=== PATIENT | female | born 1990 | race African-American/Black ===

== ENCOUNTER 2020-02-24 17:04 | Emergency (ER) | payer OTHER ==
[2020-02-24 17:07] VITALS: BP 122/83
== END 2020-02-24 18:33 | disposition left against medical advice (07) ==
LOC: ER 17:04
DX: Z53.21 Procedure and treatment not carried out due to patient leaving prior to being seen by health care provider (principal)

== ENCOUNTER 2020-03-01 09:54 | Emergency (ER) | payer SELFPAY ==
--- NOTE | 2020-03-01 10:06 | ER Document Report ---
ED Medical Screen (RME) - General Chief Complaint: Numbness Stated Complaint: ARM NUMBNESS/HEADACHE Time Seen by Provider: 03/01/20 09:59 Mode of Arrival: Ambulatory Information source: Patient Notes: 29-year-old female presented to ED for complaint of numbness to the right side of her mouth numbness to her left arm left leg and back pain that is excruciating. She does have multiple sclerosis. She states the numbness started on February 08 to the right side of her mouth. She states she went to her multiple sclerosis doctor and she got a shot and all of the symptoms got much better. Now she is moved to [place] 2 weeks ago from [place]. She now states she has slurring speech, numbness to her mouth, left arm and leg pain pain and numbness, pain to the back and a headache. She states she did drive herself to the hospital. She is alert oriented speaking in full sentences she is able to walk. I have greeted and performed a rapid initial assessment of this patient. A comprehensive ED assessment and evaluation of the patient, analysis of test results and completion of medical decision making process will be conducted by an additional ED providers. TRAVEL OUTSIDE OF THE [place] IN LAST 30 DAYS: No - Related Data Allergies/Adverse Reactions: fentanyl [Fentanyl] Allergy (Severe, Verified 03/01/20 09:57) ITCHING Past Medical History - Social History Chew tobacco use (# tins/day): No Frequency of alcohol use: Rare Drug Abuse: None - Past Medical History Cardiac Medical History: Denies: Hx Heart Attack, Hx Hypertension Pulmonary Medical History: Denies: Hx Asthma Neurological Medical History: Denies: Hx Cerebrovascular Accident, Hx Seizures GI Medical History: Reports: Hx Gastroesophageal Reflux Disease. Denies: Hx Hepatitis, Hx Hiatal Hernia, Hx Ulcer Musculoskeltal Medical History: Reports Hx Multiple Sclerosis Infectious Medical History: Denies: Hx Hepatitis Past Surgical History: Reports: Hx Appendectomy, Hx Section, Hx Tubal Ligation. Denies: Hx Hysterectomy, Hx Mastectomy, Hx Open Heart Surgery, Hx Pacemaker - Immunizations Immunizations up to date: Yes Hx Diphtheria, Pertussis, Tetanus Vaccination: Yes Physical Exam - Vital signs Vitals: Temp 98.5 F 03/01/20 09:57 Course - Vital Signs Vital signs: Temp Pulse Resp BP Pulse Ox 98.5 F 03/01/20 09:57
[2020-03-01 10:07] VITALS: BP 111/56
[2020-03-01 10:40] LABS: ABSOLUTE EOSINOPHILS # (AUTO) 0.1 10^3/uL (0.0-0.6); ABSOLUTE MONOCYTES (AUTO) 0.5 10^3/uL (0.1-1.4); ABSOLUTE NEUT (AUTO) 2.3 10^3/uL (1.7-8.2); BASOPHILS % (AUTO) 0.6 % (0-2); EOSINOPHILS % (AUTO) 2.9 % (0-6); HEMATOCRIT 35.9 % (36.0-47.0); HEMOGLOBIN 11.7 g/dL (12.0-15.5); LYMPHOCYTES % (AUTO) 41.1 % (13-45); MEAN CORPUSCULAR HEMOGLOBIN 24.3 pg (27.0-33.4); MEAN CORPUSCULAR HGB CONC 32.7 g/dL (32.0-36.0); MEAN CORPUSCULAR VOLUME 74 fl (80-97); MONOCYTES % (AUTO) 9.6 % (3-13); PLATELET COUNT 389 10^3/uL (150-450); RED BLOOD COUNT 4.82 10^6/uL (3.72-5.28); RED CELL DISTRIBUTION WIDTH 17.7 % (11.5-14.0); SEGMENTED NEUTROPHILS % (AUTO) 45.8 % (42-78); TOTAL CELLS COUNTED % (AUTO) 100 %
[2020-03-01] MEDS ORDERED: ACETAMINOPHEN 325 MG TABLET PO ONE (10:43)
[2020-03-01 10:47] LABS: ALBUMIN 4.7 g/dL (3.5-5.0); ALKALINE PHOSPHATASE 76 U/L (38-126); ANION GAP 8 (5-19); ASPARTATE AMINO TRANSFERASE 24 U/L (14-36); BILIRUBIN,TOTAL 0.6 mg/dL (0.2-1.3); BLOOD UREA NITROGEN 12 mg/dL (7-20); CARBON DIOXIDE 26 mmol/L (22-30); CHLORIDE 103 mmol/L (98-107); GLUCOSE 94 mg/dL (75-110); POTASSIUM 4.2 mmol/L (3.6-5.0); TOTAL PROTEIN 8.5 g/dL (6.3-8.2)
--- NOTE | 2020-03-01 10:59 | ER Document Report ---
HPI - HPI Patient complains to provider of: MS flare Time Seen by Provider: 03/01/20 09:59 Onset: Last week Onset/Duration: Persistent Quality of pain: Achy Pain Level: 2 Context: Patient states that she has a history of MS and recently moved to the area 2 weeks ago. Patient states that she took her last Avonex shot 2 weeks ago and does not have any more medication left. Patient complains of left side arm and leg numbness and pain symptoms. Patient states she has had some weakness to the left arm as well. Patient complains of generalized back pain, right lateral neck and generalized headache pain. Patient states that she has symptoms typical of when she has had flares in the past. Patient denies any recent illness or fever. Patient does not have a local primary doctor or neurologist. Associated Symptoms: Headache, Weakness. denies: Nonproductive cough, Productive cough Exacerbated by: Denies Relieved by: Denies Similar symptoms previously: Yes Recently seen / treated by doctor: No - ROS ROS below otherwise negative: Yes Systems Reviewed and Negative: Yes All other systems reviewed and negative - CONSTITUTIONAL Constitutional: DENIES: Fever, Chills - NEURO Neurology: REPORTS: Headache, Weakness. DENIES: Vision blurred, Dizzinesss / Vertigo - CARDIOVASCULAR Cardiovascular: DENIES: Chest pain - RESPIRATORY Respiratory: DENIES: Trouble Breathing, Coughing - GASTROINTESTINAL Gastrointestinal: DENIES: Nausea, Patient vomiting - REPRODUCTIVE Reproductive: DENIES: : - MUSCULOSKELETAL Musculoskeletal: REPORTS: Extremity pain - DERM Skin Color: Normal Skin Problems: None Past Medical History - General Information source: Patient - Social History Smoking Status: Current Some Day Smoker Chew tobacco use (# tins/day): No Frequency of alcohol use: Rare Drug Abuse: None Occupation: Retail Lives with: Family Family History: Reviewed & Not Pertinent Patient has homicidal ideation: No - Medical History Medical History: Other - MS - Past Medical History Cardiac Medical History: Denies: Hx Heart Attack, Hx Hypertension Pulmonary Medical History: Denies: Hx Asthma Neurological Medical History: Denies: Hx Cerebrovascular Accident, Hx Seizures GI Medical History: Reports: Hx Gastroesophageal Reflux Disease. Denies: Hx Hepatitis, Hx Hiatal Hernia, Hx Ulcer Musculoskeletal Medical History: Reports Hx Multiple Sclerosis Psychiatric Medical History: Reports: Hx Anxiety Infectious Medical History: Denies: Hx Hepatitis Past Surgical History: Reports: Hx Appendectomy, Hx Section, Hx Tubal Ligation - Immunizations Immunizations up to date: Yes Hx Diphtheria, Pertussis, Tetanus Vaccination: Yes Vertical Provider Document - CONSTITUTIONAL Agree With Documented VS: Yes Exam Limitations: No Limitations General Appearance: WD/WN, No Apparent Distress - INFECTION CONTROL TRAVEL OUTSIDE OF THE [place] IN LAST 30 DAYS: No - HEENT HEENT: Atraumatic, Normocephalic - NECK Neck: Normal Inspection, Supple. negative: Lymphadenopathy-Left, Lymphadenopathy-Right Notes: No meningismus - RESPIRATORY Respiratory: Breath Sounds Normal, No Respiratory Distress - CARDIOVASCULAR Cardiovascular: Regular Rate, Regular Rhythm, No Murmur Pulses: Normal: Radial - GI/ABDOMEN Gastrointestinal: Abdomen Soft - BACK Back: Normal Inspection - MUSCULOSKELETAL/EXTREMETIES Musculoskeletal/Extremeties: EDITH REINA - NEURO Level of Consciousness: Awake, Alert, Appropriate Notes: Patient with altered sensation to light touch to the left upper and lower extremity. 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 Patient states that she ran out of her Avonex 2 weeks ago and missed her injection last week. Patient states that she just recently moved here from [place] 2 weeks ago and has not been able to get established with a local neurologist or primary care provider. Patient states that typically when she has MS flares that it will cause alteration in sensation to the left side of her body. Patient also complains of headache which she has experienced with her flares in the past. Patient nontoxic in appearance without any leukocytosis. No concern for meningitis or encephalitis. Consulted with Dr. Greene regarding patient presentation and management. Recommends giving patient a prescription for a single dose of her medication to bridge so that she can contact a local primary doctor or neurologist office for further management. - Vital Signs Vital signs: Temp Pulse Resp BP Pulse Ox 98.5 F 87 18 111/56 L 98 03/01/20 09:57 03/01/20 10:29 03/01/20 10:29 03/01/20 10:29 03/01/20 10:29 - Laboratory Result Diagrams: 03/01/20 10:10 03/01/20 10:10 Laboratory results interpreted by me: 03/01/20 03/01/20 10:10 10:10 Hgb 11.7 L Hct 35.9 L MCV 74 L MCH 24.3 L RDW 17.7 H Total Protein 8.5 H Discharge - Discharge Clinical Impression: Multiple sclerosis Condition: Stable Disposition: HOME, SELF-CARE Additional Instructions: Return immediately for any new or worsening symptoms Followup with a primary care provider, call tomorrow to make a followup appointment Follow-up with a neurologist, call Monday to make an appointment Prescriptions: Interferon Beta-1A [Avonex] 30 mcg IM ONCE PRN #1 [id number] PRN Reason: Forms: Return to Work Referrals: [facility] [Provider Group] - Follow up as needed YEE SHAW MD [NO LOCAL MD] - Follow up as needed
== END 2020-03-01 11:18 | disposition home or self-care (01) ==
LOC: ER 09:54
DX: G35 Multiple sclerosis (principal); M54.9 Dorsalgia, unspecified; M54.2 Cervicalgia; R51 Headache; R20.0 Anesthesia of skin; R53.1 Weakness; F17.200 Nicotine dependence, unspecified, uncomplicated
CPT/HCPCS: 36415; 80053; 85025; 99284